=== PATIENT | female | born 1955 | race Hispanic/Latino ===

== ENCOUNTER 2017-09-06 09:08 | Inpatient (IN) | payer MEDICARE ==
[2017-09-06 09:14] VITALS: BMI 27.8
[2017-09-06] MEDS ORDERED: Iohexol 240 (50 ml) PO ONE (09:39)
[2017-09-06] MEDS ORDERED: Sodium Chloride 0.9% 1,000 ML IV STA (09:39)
--- NOTE | 2017-09-06 09:48 | ED PDOC ---
HPI: Abdomen Time Seen by Provider: 09/06/17 09:19 Chief Complaint (Nursing): GI Problem Chief Complaint (Provider): constipation History Per: Patient History/Exam Limitations: no limitations Onset/Duration Of Symptoms: Days (1 month) Outside of [place] travel?: No Current Symptoms Are (Timing): Still Present Additional Complaint(s): Pt. with constipation for 1 month. Gets relief with some meds. Mag citrate used Wed and it helped. Pt. has tried colace and enemas as well. Saw Dr. Negrete for the constipation. Told to use colace with only trace stool. Came today as she has some back pain for 3 days. No weakness, dizziness, abd pain, chest pain, dyspnea, nausea, vomit. Past Medical History Reviewed: Nursing Documentation, Vital Signs Vital Signs: Last Vital Signs Temp 98.1 F 09/06/17 09:14 Pulse 106 H 09/06/17 09:14 Resp 17 09/06/17 09:14 BP 157/91 H 09/06/17 09:14 Pulse Ox 98 09/06/17 09:48 - Medical History PMH: Asthma Denies: Chronic Kidney Disease Other PMH: lymphoma hx and remession - Surgical History Surgical History: No Surg Hx - Family History Family History: States: Unknown Family Hx - Social History Current smoker - smoking cessation education provided: No Alcohol: None Drugs: Denies - Home Medications Home Medications: Ambulatory Orders Medication Instructions Recorded Albuterol HFA [Ventolin HFA 90 1 inhaler Q6 PRN 07/18/14 mcg/actuation (8 g)] Oseltamivir Phosphate [Tamiflu] 75 mg PO BID #10 cap 08/10/15 - Allergies Allergies/Adverse Reactions: Allergies Allergy/AdvReac Type Severity Reaction Status Date / Time FISH Allergy THROAT Verified 09/06/17 09:26 SWELLS vitamin b complex Allergy RASH Uncoded 09/06/17 09:26 Review of Systems ROS Statement: Except As Marked, All Systems Reviewed And Found Negative Gastrointestinal: Positive for: Constipation Musculoskeletal: Positive for: Back Pain Physical Exam - Reviewed Nursing Documentation Reviewed: Yes Vital Signs Reviewed: Yes - Physical Exam Appears: Positive for: Uncomfortable Head Exam: Positive for: ATRAUMATIC, NORMAL INSPECTION, NORMOCEPHALIC Skin: Positive for: Normal Color, Warm, DRY Eye Exam: Positive for: EOMI, Normal appearance, PERRL ENT: Positive for: Normal ENT Inspection Neck: Positive for: Normal, Painless ROM Cardiovascular/Chest: Positive for: Regular Rate, Rhythm Respiratory: Positive for: CNT, Normal Breath Sounds Gastrointestinal/Abdominal: Positive for: Normal Exam, Soft. Negative for: Tenderness Back: Positive for: Normal Inspection. Negative for: L CVA Tenderness, R CVA Tenderness Extremity: Positive for: Normal ROM. Negative for: Tenderness, Pedal Edema Neurologic/Psych: Positive for: Alert, senior net application developer II-XII, Oriented. Negative for: Motor/Sensory Deficits - Laboratory Results Result Diagrams: 09/06/17 10:17 09/06/17 10:17 Interpretation Of Abn Labs: no acute - ECG O2 Sat by Pulse Oximetry: 98 - Progress ED Course And Treament: 1344: Stable. Spoke with Dr. Negrete who wants admit to hospitalist. Spoke with Dr. Moyer. Will admit. Dr. Christianson, oncology paged. 1356: Spoke with Dr. Christianson. Pt. well known to her. Wants pt. admitted and she will consult. Recommends 1mg/kg sc of lovenox for the portal vein thrombosis. Pt. with no new bleeding, vomiting blood. No recent fall or head injury. IMPRESSION: 1. Findings are most compatible with large 5.5 x 4.4 cm mass in the body of the pancreas with invasion and portal vein thrombosis. Regional lymphadenopathy, the largest precaval lymph node measures 1.6 cm. 2. Solitary 2.7 cm rim enhancing lesion in the posterior superior right hepatic lobe concerning for metastatic deposit given large pancreatic mass. Anteriorly the mass abuts the posterior wall of the stomach and posteriorly extends into the retroperitoneum and abuts the left lateral wall of the superior mesenteric artery an celiac axis. The differential considerations include pancreatic carcinoma and lymphoma with the stated history of lymphoma. Histopathologic correlation is advised. 3. Moderate splenomegaly with portosystemic varices as described above. 4. 10 x 15 mm subcapsular lesion in the lower pole of the spleen is nonspecific , decreased in size since the prior examination most compatible with known posttreatment change/infarction. 5. Stable 8 mm nodule in the left lung base. - Critical Care Total Time (In Min): 30 Documented Critical Care: Time excludes all time spent performint seperately billable procedures Disposition - Clinical Impression Clinical Impression: Pancreatic mass, Portal vein thrombosis - Patient ED Disposition Is Patient to be Admitted: Yes Counseled Patient/Family Regarding: Studies Performed, Diagnosis - Disposition Disposition Time: 13:45 Condition: FAIR - Pt Status Changed To: Hospital Disposition Of: Inpatient - Admit Certification Admit to Inpatient:: After my assessment, the patient will require hospitalization for at least two midnights. This is because of the severity of symptoms shown, intensity of services needed, and/or the medical risk in this patient being treated as an outpatient. - POA Present On Arrival: None
[2017-09-06] MEDS ORDERED: Iohexol 240 (50 ml) ONE (10:10)
[2017-09-06 10:29] LABS: BASO % 0.7 % (0.0-2.0); EOS # 0.1 K/uL (0.0-0.7); EOS % 2.3 % (0.0-4.0); HEMOGLOBIN 15.6 g/dL (12.0-16.0); LYMPH # 1.3 K/uL (1.0-4.3); LYMPH % 33.2 % (20.0-40.0); MEAN CORPUSCULAR HEMOGLOBIN 29.2 pg (27.0-31.0); MEAN CORPUSCULAR HGB CONC 34.3 g/dL (33.0-37.0); MEAN PLATELET VOLUME 8.9 fl (7.2-11.7); MONO # 0.3 K/uL (0.0-0.8); MONO % 8.1 % (0.0-10.0); NEUT # 2.3 K/uL (1.8-7.0); NEUT % 55.7 % (50.0-75.0); NRBC % 0.1 % (0.0-0.0); RBC 5.36 Mil/uL (3.80-5.20); RED CELL DISTRIBUTION WIDTH 13.4 % (11.5-14.5); WHITE BLOOD COUNT 4.1 K/uL (4.8-10.8)
[2017-09-06 10:38] LABS: ALB/GLOB RATIO 1.5 (1.0-2.1); ALBUMIN 4.6 g/dL (3.5-5.0); ALT/SGPT 42 U/L (9-52); AST/SGOT 21 U/L (14-36); BLOOD UREA NITROGEN 11 mg/dl (7-17); GFR AFRICAN-AMERICAN > 60; GFR NON-AFRICAN AMERICAN > 60
[2017-09-06] MEDS ORDERED: Sodium Chloride 0.9% 100 ML ONE (11:38)
[2017-09-06] MEDS ORDERED: Iohexol 300 100 ML IJ ONE (11:38)
--- NOTE | 2017-09-06 12:57 | CT ---
PROCEDURE: CT Abdomen and Pelvis with contrast HISTORY: Abdominal pain COMPARISON: 09/29/2012 TECHNIQUE: CT scan of the abdomen and pelvis was performed after administration of intravenous contrast. Oral contrast was administered. Coronal and sagittal reformatted images were obtained. Contrast dose: 98 cc Omnipaque 300 Radiation dose: Total exam DLP = 2128.38 mGy-cm. This CT exam was performed using one or more of the following dose reduction techniques: Automated exposure control, adjustment of the mA and/or kV according to patient size, and/or use of iterative reconstruction technique. FINDINGS: LOWER THORAX: The right lung base is clear. There is a 8 mm non coarse defined nodule in the left lung base. (Series 2, image 13). LIVER: The liver is normal in size and there is diffuse fatty infiltration with probable fatty sparing in the peripheral right hepatic lobe. No ductal dilatation. There is a 2.7 x 1.7 cm subcapsular rim enhancing hyperdense lesion in the posterior superior right hepatic lobe. GALLBLADDER AND BILE DUCTS: No calcified gallstones. PANCREAS: there is a 5.5 x 4.4 cm hyperdense mass in the body of the pancreas. The tail of the pancreas is not visualized and likely atrophic. The head of the pancreas appears normal in size with normal enhancement.There is probable invasion and thrombosis of the splenic vein. There are multiple splenorenal, perisplenic and gastric varices. Anteriorly the mass abuts the posterior wall of the stomach. Posteriorly the mass extends into the retroperitoneum and abuts the left lateral wall of the superior mesenteric artery and celiac axis. SPLEEN: There is moderate enlargement of the spleen without there is a 10 x 15 mm subcapsular hypodense lesion in the lower pole of the spleen with eccentric calcification. ADRENALS: No discrete nodule. KIDNEYS AND URETERS: Normal in size with homogeneous enhancement. No hydronephrosis. No solid mass. VASCULATURE: There are advanced atherosclerotic aortoiliac calcifications. No aortic aneurysm. BOWEL: The small bowel loops are normal in caliber. The colon is unremarkable. . APPENDIX: Normal appendix. PERITONEUM: Unremarkable. No free fluid. No free air. LYMPH NODES: There is a 1.6 cm precaval lymph node. Additionally, there are small peripancreatic lymph nodes. BLADDER: Partially decompressed. REPRODUCTIVE: Mildly enlarged fibroid uterus. BONES: No acute fracture. Diffuse bone demineralization and multilevel degenerative changes. OTHER FINDINGS: None. IMPRESSION: 1. Findings are most compatible with large 5.5 x 4.4 cm mass in the body of the pancreas with invasion and portal vein thrombosis. Regional lymphadenopathy, the largest precaval lymph node measures 1.6 cm. 2. Solitary 2.7 cm rim enhancing lesion in the posterior superior right hepatic lobe concerning for metastatic deposit given large pancreatic mass. Anteriorly the mass abuts the posterior wall of the stomach and posteriorly extends into the retroperitoneum and abuts the left lateral wall of the superior mesenteric artery an celiac axis. The differential considerations include pancreatic carcinoma and lymphoma with the stated history of lymphoma. Histopathologic correlation is advised. 3. Moderate splenomegaly with portosystemic varices as described above. 4. 10 x 15 mm subcapsular lesion in the lower pole of the spleen is nonspecific, decreased in size since the prior examination most compatible with known posttreatment change/infarction. 5. Stable 8 mm nodule in the left lung base.
[2017-09-06] MEDS ORDERED: Enoxaparin 80 mg Syringe SC STA (13:50)
[2017-09-06] MEDS ORDERED: Albuterol HFA 90 mcg/actuation (8 g) INH PRN (14:32)
[2017-09-06] MEDS ORDERED: Magnesium Hydroxide Susp 30 ml UD PO PRN (14:41)
[2017-09-06 15:00] LABS: LIPASE 93 U/L (23-300)
[2017-09-06 15:15] LABS: PROTHROMBIN TIME 13.2 Seconds (9.8-13.1)
[2017-09-06 15:16] LABS: INR 1.2 (0.9-1.2)
[2017-09-06 15:17] LABS: PARTIAL THROMBOPLASTIN TIME 32.6 Seconds (25.6-37.1)
--- NOTE | 2017-09-06 15:22 | CP.PCM.HP ---
History of Present Illness - History of Present Illness History of Present Illness: CC: Abdominal pain This is a 62 year old female with a past medical history significant for asthma , mantle cell lymphoma, w/ hx secondary splenic mass, presenting to the ED complaining of severe abdominal pain. The patient states that she has been constipated over the past week. She has attempted colace and enemas as well over the past two days but did not help. As a result she came to the ED. Here in the ED, the patient was found to be hemodynamically stable. Labwork is benign. CT scan was done due to the severe abdominal pain and revealed a large pancreatic mass with a right sided hepatic mass concerning for metastatic disease. In addition the patient was found to have a portal vein thrombosis. Dr. Sanford was called for heme/onc by the ED physician and recommended inpatient admission for anticoagulation and for further oncologic workup of this concerning mass. Patient's abdominal pain is still present but improved somewhat. Patient denies chest pain, shortness of breath, fevers, chills, vomiting, diarrhea, headache. All of the patient's questions were answered at the bedside. Present on Admission - Present on Admission Any Indicators Present on Admission: No History of DVT/PE: No History of Uncontrolled Diabetes: No Review of Systems - Review of Systems Review of Systems: A 12 point review of systems was conducted and found to be negative other than what was mentioned in the HPI. Past Patient History - Infectious Disease Hx of Infectious Diseases: None - Past Medical History & Family History Past Medical History?: Yes - Past Social History Alcohol: None Drugs: Denies - CARDIAC Hx Cardiac Disorders: No - PULMONARY Hx Respiratory Disorders: Yes - NEUROLOGICAL Hx Neurological Disorder: No - HEENT Hx HEENT Problems: No - RENAL Hx Chronic Kidney Disease: No - ENDOCRINE/METABOLIC Hx Endocrine Disorders: No - HEMATOLOGICAL/ONCOLOGICAL Hx Blood Disorders: Yes - INTEGUMENTARY Hx Dermatological Problems: No - MUSCULOSKELETAL/RHEUMATOLOGICAL Hx Musculoskeletal Disorders: No - GASTROINTESTINAL Hx Gastrointestinal Disorders: No - GENITOURINARY/GYNECOLOGICAL Hx Genitourinary Disorders: No - PSYCHIATRIC Hx Psychophysiologic Disorder: No Hx Emotional Abuse: No Hx Substance Use: No - SURGICAL HISTORY Hx Surgeries: Yes Hx Vascular Access Device: Yes (JANETH CATH INSERTED 05/2011) Other/Comment: OVARIAN CYSTECTOMY 1979 - ANESTHESIA Hx Anesthesia: Yes Hx Anesthesia Reactions: Yes (EXAC ASTHMA ) Hx Malignant Hyperthermia: No Meds Allergies/Adverse Reactions: Allergies Allergy/AdvReac Type Severity Reaction Status Date / Time FISH Allergy THROAT Verified 09/06/17 09:26 SWELLS vitamin b complex Allergy RASH Uncoded 09/06/17 09:26 Physical Exam - Additional Findings Additional findings: Physical exam: Constitutional- cooperative, awake, alert Head- NCAT, PERRL Eye- PERRL, EOMI ENT- normal exam, MMM. Neck- normal inspection, supple, no JVD Respiratory- CTAB, no wheezes rales rhonchi Cardiovascular- RRR, +S1, +S2 no MRG GI/Abdominal- normal bowel sounds, soft, no mass, no hsm Skin- warm, dry Extremities Exam- normal capillary refill, normal inspection Neurological Exam- alert, awake, oriented Psych- normal mood, normal affect Results - Vital Signs Recent Vital Signs: Last Vital Signs Temp 98.1 F 09/06/17 09:14 Pulse 97 H 09/06/17 14:58 Resp 17 09/06/17 14:58 BP 130/84 09/06/17 14:58 Pulse Ox 98 09/06/17 14:15 - Labs Result Diagrams: 09/06/17 10:17 09/06/17 10:17 Labs: Laboratory Results - last 24 hr 09/06/17 09/06/17 09/06/17 10:17 10:17 14:45 WBC 4.1 L D RBC 5.36 H Hgb 15.6 Hct 45.6 MCV 85.0 D MCH 29.2 MCHC 34.3 RDW 13.4 Plt Count 129 L D MPV 8.9 Neut % (Auto) 55.7 Lymph % (Auto) 33.2 Cassia % (Auto) 8.1 Eos % (Auto) 2.3 Baso % (Auto) 0.7 Neut # (Auto) 2.3 Lymph # (Auto) 1.3 Cassia # (Auto) 0.3 Eos # (Auto) 0.1 Baso # (Auto) 0.0 PT INR APTT Sodium 146 Potassium 3.9 Chloride 105 Carbon Dioxide 24 Anion Gap 21 H BUN 11 Creatinine 0.6 L Est GFR ( Amer) > 60 Est GFR (Non-Af Amer) > 60 Random Glucose 129 H Calcium 10.0 Total Bilirubin 0.8 AST 21 ALT 42 Alkaline Phosphatase 86 Troponin I < 0.0120 Total Protein 7.6 Albumin 4.6 Globulin 3.0 Albumin/Globulin Ratio 1.5 Lipase 93 09/06/17 14:45 WBC RBC Hgb Hct MCV MCH MCHC RDW Plt Count MPV Neut % (Auto) Lymph % (Auto) Cassia % (Auto) Eos % (Auto) Baso % (Auto) Neut # (Auto) Lymph # (Auto) Cassia # (Auto) Eos # (Auto) Baso # (Auto) PT 13.2 H INR 1.2 APTT 32.6 Sodium Potassium Chloride Carbon Dioxide Anion Gap BUN Creatinine Est GFR ( Amer) Est GFR (Non-Af Amer) Random Glucose Calcium Total Bilirubin AST ALT Alkaline Phosphatase Troponin I Total Protein Albumin Globulin Albumin/Globulin Ratio Lipase Assessment & Plan - Assessment and Plan (Free Text) Plan: ASSESSMENT/PLAN This is a 62 yo female with a past medical history significant for asthma, mantle cell lymphoma, w/ hx secondary splenic mass, admitted for portal vein thrombosis and large pancreatic mass with likely metastatic disease. 1) Large pancreatic mass, 5.5 x 4.4, in the body of the pancreas with invasion and portal vein thrombosis, with 2.7 cm rim enhancing lesion in the posterior superior right hepatic lobe concerning for metastatic deposit given large pancreatic mass. - Admit to med/surg - Consultation with Dr. Uriah Sanford, heme/onc, for oncologic workup. Patient will likely require mass biopsy for further evaluation 2) Portal vein thrombosis - Secondary to pancreatic mass - Start therapeutic Lovenox 1 mg/kg - Consultation with Dr. Uriah sanford as above 3) Asthma - Chronic, stable - Dr. Negrete on consultation for pulmonary - Ventolin inhaler PRN 4) Constipation - Lactulose - Milk of magnesia - Colace 100 mg po BID 5) DVT prophylaxis - Lovenox
[2017-09-06] MEDS ORDERED: Theophylline 200mg ER 24 hrs Cap PO SCH (17:00)
[2017-09-06] MEDS ORDERED: Theophylline 100mg ER 24 hrs Cap PO SCH (17:00)
[2017-09-06] MEDS ORDERED: Pneumococcal 23-Valent Vaccine IM ONE (18:50)
[2017-09-06] MEDS: Enoxaparin 80 mg Syringe SC SCH (20:58)
[2017-09-07] MEDS: Enoxaparin 80 mg Syringe SC SCH (08:02)
--- NOTE | 2017-09-07 10:43 | CP.PCM.CON ---
History of Present Illness - History of Present Illness History of Present Illness: This a 62 yrs old female well known to me for about 7 yrs. She had a non hodgkins lymphoma with a large spleen extending down to the Right lower quadrant.. She was treated with rituxan+CHOP and had a excellent response. She was on maintenance Rituxan for 2 yrs and was in complete remission until now. She had regular blood tests with [facility] and there were always normal. Her last PET scan about 1 yr ago did not show any adenopathy, and the spleen which was slightly enlarged but was not positive on the PET scan. She has been quite heavy and made up her mind to lose weight She was on a low carb and went to the Gym regularly, and lost about 20 lbs over 6 months. No c/o abdominal pain. Now she presents with severe abdominal pain and constipation for the last week. She came to the ER and had a CT scan to r.o obstruction, but was found to have a 5,5cm mass in the body of the pancreas, with a 2.5 lesin in the liver. and a ? lesion in the lower pole of the spleen which is enlarged. No jaundice, there is pressure on the stomach, with infiltration into the retroperitoneum and the portal vein, cauing portal vein thrombosis, Was smoker in the past but quit many years ago Drinks wine occasionally Past h/o asthma and was under the care of Dr Negrete for the same. Past Patient History - Infectious Disease Hx of Infectious Diseases: None - Past Medical History & Family History Past Medical History?: Yes - Past Social History Smoking Status: Smoker Currrent Status Unknown - CARDIAC Hx Cardiac Disorders: No - PULMONARY Hx Respiratory Disorders: Yes Hx Asthma: Yes - NEUROLOGICAL Hx Neurological Disorder: No - HEENT Hx HEENT Problems: No - RENAL Hx Chronic Kidney Disease: No - ENDOCRINE/METABOLIC Hx Endocrine Disorders: No Other/Comment: lymphoma - HEMATOLOGICAL/ONCOLOGICAL Hx Blood Disorders: Yes - INTEGUMENTARY Hx Dermatological Problems: No - MUSCULOSKELETAL/RHEUMATOLOGICAL Hx Musculoskeletal Disorders: No Hx Falls: No - GASTROINTESTINAL Hx Gastrointestinal Disorders: No - GENITOURINARY/GYNECOLOGICAL Hx Genitourinary Disorders: No - PSYCHIATRIC Hx Psychophysiologic Disorder: No Hx Emotional Abuse: No Hx Substance Use: No - SURGICAL HISTORY Hx Surgeries: Yes Hx Vascular Access Device: Yes (JANETH CATH INSERTED 05/2011) Other/Comment: OVARIAN CYSTECTOMY 1979 - ANESTHESIA Hx Anesthesia: Yes Hx Anesthesia Reactions: Yes (EXAC ASTHMA ) Hx Malignant Hyperthermia: No Meds Allergies/Adverse Reactions: Allergies Allergy/AdvReac Type Severity Reaction Status Date / Time FISH Allergy THROAT Verified 09/06/17 09:26 SWELLS vitamin b complex Allergy RASH Uncoded 09/06/17 09:26 - Medications Medications: Current Medications Acetaminophen (Tylenol 325mg Tab) 650 mg PO Q4 PRN PRN Reason: Other Last Admin: 09/06/17 21:15 Dose: 650 mg Albuterol (Ventolin Hfa 90 Mcg/Actuation (8 G)) 1 puff INH Q6 PRN PRN Reason: Shortness of Breath Docusate Sodium (Colace) 100 mg PO BID [facility] Last Admin: 09/07/17 08:00 Dose: 100 mg Enoxaparin Sodium (Lovenox) 70 mg SC Q12H TESFAYE PRN Reason: Protocol Last Admin: 09/07/17 08:02 Dose: 70 mg Famotidine (Pepcid) 20 mg PO DAILY [facility] Last Admin: 09/07/17 08:00 Dose: 20 mg Lactulose (Enulose) 20 gm PO BID PRN PRN Reason: Constipation Last Admin: 09/07/17 08:03 Dose: 20 gm Magnesium Hydroxide (Milk Of Magnesia) 30 ml PO DAILY PRN PRN Reason: Constipation Ondansetron HCl (Zofran Inj) 4 mg IVP Q6 PRN PRN Reason: Nausea/Vomiting Theophylline (Baldomero-24) 100 mg PO DAILY [facility] Last Admin: 09/06/17 18:06 Dose: Not Given Zolpidem Tartrate (Ambien) 5 mg PO HS PRN PRN Reason: Insomnia Last Admin: 09/06/17 21:56 Dose: 5 mg Physical Exam - Additional Findings Additional findings: Physical exam; Alert, well oriented in no acute disease Neck; Supple no adenopathy Chest; Clear, no rales pr rhonchi Heart; RSR, no murmur Abd; Soft, no mass, spleen 8cms below left costal margin Results - Vital Signs Recent Vital Signs: Last Vital Signs Temp 98.3 F 09/07/17 08:01 Pulse 73 09/07/17 08:01 Resp 20 09/07/17 08:01 BP 123/78 09/07/17 08:01 Pulse Ox 96 09/07/17 08:01 - Labs Result Diagrams: 09/06/17 10:17 09/06/17 10:17 Labs: Laboratory Results - last 24 hr 09/06/17 09/06/17 09/06/17 10:17 10:17 14:45 WBC 4.1 L D RBC 5.36 H Hgb 15.6 Hct 45.6 MCV 85.0 D MCH 29.2 MCHC 34.3 RDW 13.4 Plt Count 129 L D MPV 8.9 Neut % (Auto) 55.7 Lymph % (Auto) 33.2 Wallace % (Auto) 8.1 Eos % (Auto) 2.3 Baso % (Auto) 0.7 Neut # (Auto) 2.3 Lymph # (Auto) 1.3 Wallace # (Auto) 0.3 Eos # (Auto) 0.1 Baso # (Auto) 0.0 PT INR APTT Sodium 146 Potassium 3.9 Chloride 105 Carbon Dioxide 24 Anion Gap 21 H BUN 11 Creatinine 0.6 L Est GFR ( Amer) > 60 Est GFR (Non-Af Amer) > 60 Random Glucose 129 H Calcium 10.0 Total Bilirubin 0.8 AST 21 ALT 42 Alkaline Phosphatase 86 Troponin I < 0.0120 Total Protein 7.6 Albumin 4.6 Globulin 3.0 Albumin/Globulin Ratio 1.5 Lipase 93 09/06/17 14:45 WBC RBC Hgb Hct MCV MCH MCHC RDW Plt Count MPV Neut % (Auto) Lymph % (Auto) Wallace % (Auto) Eos % (Auto) Baso % (Auto) Neut # (Auto) Lymph # (Auto) Wallace # (Auto) Eos # (Auto) Baso # (Auto) PT 13.2 H INR 1.2 APTT 32.6 Sodium Potassium Chloride Carbon Dioxide Anion Gap BUN Creatinine Est GFR ( Amer) Est GFR (Non-Af Amer) Random Glucose Calcium Total Bilirubin AST ALT Alkaline Phosphatase Troponin I Total Protein Albumin Globulin Albumin/Globulin Ratio Lipase Assessment & Plan - Assessment and Plan (Free Text) Assessment: Impression; Pancreatic mass, possible liver metastasis ? pancreatic cancer , ? recurrent lymphoma Portal vein thrombosis Plan: Plan' I agree that pt should ne on anticoagulants. She is on lovenox ,which will be held because a biopsy is to be done tomorrow by IR. If not successful, will need a EUS biopsy7 - Date & Time Date: 09/07/17 Time: 10:54
--- NOTE | 2017-09-07 12:05 | CP.PCM.PN ---
Subjective - Date & Time of Evaluation Date of Evaluation: 09/07/17 Time of Evaluation: 11:00 - Subjective Subjective: Patient seen and examined bedside. feeling much better today . Able to have BM and pain is controlled . No acute issues overnight. Hemodynamically stable Objective - Vital Signs/Intake and Output Vital Signs (last 24 hours): Temp Pulse Resp BP Pulse Ox 98.3 F 73 20 123/78 96 09/07/17 08:01 09/07/17 08:01 09/07/17 08:01 09/07/17 08:01 09/07/17 08:01 - Medications Medications: Current Medications Acetaminophen (Tylenol 325mg Tab) 650 mg PO Q4 PRN PRN Reason: Other Last Admin: 09/06/17 21:15 Dose: 650 mg Albuterol (Ventolin Hfa 90 Mcg/Actuation (8 G)) 1 puff INH Q6 PRN PRN Reason: Shortness of Breath Docusate Sodium (Colace) 100 mg PO BID [facility] Last Admin: 09/07/17 08:00 Dose: 100 mg Enoxaparin Sodium (Lovenox) 70 mg SC Q12H [facility] PRN Reason: Protocol Last Admin: 09/07/17 08:02 Dose: 70 mg Famotidine (Pepcid) 20 mg PO DAILY [facility] Last Admin: 09/07/17 08:00 Dose: 20 mg Lactulose (Enulose) 20 gm PO BID PRN PRN Reason: Constipation Last Admin: 09/07/17 08:03 Dose: 20 gm Magnesium Hydroxide (Milk Of Magnesia) 30 ml PO DAILY PRN PRN Reason: Constipation Ondansetron HCl (Zofran Inj) 4 mg IVP Q6 PRN PRN Reason: Nausea/Vomiting Theophylline (Baldomero-24) 100 mg PO DAILY [facility] Last Admin: 09/06/17 18:06 Dose: Not Given Zolpidem Tartrate (Ambien) 5 mg PO HS PRN PRN Reason: Insomnia Last Admin: 09/06/17 21:56 Dose: 5 mg - Labs Labs: 09/06/17 10:17 09/06/17 10:17 PT 13.2 Seconds (9.8-13.1) H 09/06/17 14:45 INR 1.2 (0.9-1.2) 09/06/17 14:45 APTT 32.6 Seconds (25.6-37.1) 09/06/17 14:45 - Constitutional Appears: Non-toxic, No Acute Distress - Head Exam Head Exam: ATRAUMATIC, NORMAL INSPECTION, NORMOCEPHALIC - Eye Exam Eye Exam: EOMI, Normal appearance, PERRL Pupil Exam: NORMAL ACCOMODATION - ENT Exam ENT Exam: Mucous Membranes Moist, Normal Exam - Neck Exam Neck Exam: Full ROM, Normal Inspection - Respiratory Exam Respiratory Exam: Clear to Ausculation Bilateral, NORMAL BREATHING PATTERN. absent: Rales, Rhonchi, Wheezes - Cardiovascular Exam Cardiovascular Exam: REGULAR RHYTHM, RRR, +S1, +S2. absent: JVD - GI/Abdominal Exam GI & Abdominal Exam: Soft, Normal Bowel Sounds. absent: Distended, Guarding, Tenderness, Rebound - Rectal Exam Rectal Exam: Deferred - Extremities Exam Extremities Exam: Full ROM, Normal Capillary Refill, Normal Inspection. absent : Calf Tenderness, Pedal Edema - Back Exam Back Exam: NORMAL INSPECTION - Neurological Exam Neurological Exam: Alert, Awake, CN II-XII Intact, Normal Gait, Oriented x3 - Psychiatric Exam Psychiatric exam: Normal Affect, Normal Mood - Skin Skin Exam: Dry, Intact, Normal Color, Warm Assessment and Plan - Assessment and Plan (Free Text) Assessment: 62 yo female with a past medical history significant for asthma, mantle cell lymphoma treated with chemotherapy and currently on remission since 2014, presented tpo Er with severe abdominal pain , progressive over the last 1 month and constipation .CT abdomen and pelvis showed portal vein thrombosis and 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 patient admitted to med/surg for pain control, anticoagulation and further work up for the mass. 1.Suspected metastatic disease of unclear etiology ( possible lymphoma , pancreatic ca ) CT abdomen and pelvis showed : Large pancreatic mass, 5.5 x 4.4, in the body of the pancreas with invasion and portal vein thrombosis, with 2.7 cm rim enhancing lesion in the posterior superior right hepatic lobe concerning for metastatic deposit given large pancreatic mass. plan for IR biopsy of one of the lesions for tissue diagnosis. Hold Lovenox today and tomorrow NPO past midnight 2.Portal vein thrombosis Possible Secondary to pancreatic mass Started therapeutic Lovenox 1 mg/kg Hem/onc consulted hold Lovenox today and AM for tissue biopsy 3.Asthma Chronic, stable Dr. Negrete on consultation for pulmonary Ventolin inhaler PRN 4. Constipation Given Lactulose and MOM Continue colase resolved 5. History of lymphoma 6.DVT prophylaxis on Lovenox hold Lovenox today and tomorrow for IR biopsy
[2017-09-07] MEDS: Theophylline 80 mg/15 ml Liq UD PO SCH (16:59)
[2017-09-08 06:26] LABS: HEMOGLOBIN 13.2 g/dL (12.0-16.0); MEAN CELL VOLUME 85.3 fl (81.0-99.0); MEAN CORPUSCULAR HEMOGLOBIN 28.9 pg (27.0-31.0); MEAN CORPUSCULAR HGB CONC 33.9 g/dL (33.0-37.0); RBC 4.57 Mil/uL (3.80-5.20); RED CELL DISTRIBUTION WIDTH 13.3 % (11.5-14.5); WHITE BLOOD COUNT 2.7 K/uL (4.8-10.8)
[2017-09-08 06:30] LABS: INR 1.2 (0.9-1.2)
[2017-09-08 07:22] LABS: BLOOD UREA NITROGEN 8 mg/dl (7-17); CALCIUM 9.3 mg/dL (8.4-10.2); GFR AFRICAN-AMERICAN > 60; GFR NON-AFRICAN AMERICAN > 60
[2017-09-08 08:02] VITALS: BP 133/87; PULSE 76; RESP 20; TEMP 98; O2SAT 96
[2017-09-08] MEDS: Theophylline 80 mg/15 ml Liq UD PO SCH (08:21)
[2017-09-08] MEDS ORDERED: Pantoprazole 40 mg EC Tab PO SCH (09:00)
--- NOTE | 2017-09-08 09:08 | CARD ---
APPROVED REPORT EKG Measurement Heart [id number] SD [id number] <Conclusion> Normal sinus rhythm Possible Left atrial enlargement Possible inferior infarct, age undetermined Abnormal ECG
--- NOTE | 2017-09-08 09:41 | CP.PCM.CON ---
History of Present Illness - History of Present Illness History of Present Illness: This 62-year-old female is well-known to me from the outpatient setting as well as prior hospitalizations. She was seen just a few days prior to admission when she presented to my office complaining of constipation. She had noted a recent change in her bowel habit which was not responsive to [id number] medications at that time. She was complaining of a pressure type sensation in her back which was alleviated by bowel movement. There were some symptoms which appeared to be related to hyperacidity and gas discomfort in the epigastric area and was begun on famotidine 20 mg tablets once daily and encouraged to use increased amount of Colace. She was told that she would require further studies if her bowel movements do not improve over the course of the next few days. She returned home and continued to have abdominal discomfort and failed to have a bowel movement despite the above and presented to the emergency department. A CT of the abdomen/pelvis was requested which revealed a large mass in the body of the pancreas. She had been treated for mantle cell lymphoma with great improvement having received chemotherapy for approximately 3 years time finishing 4 years ago. She has been monitored on an outpatient basis by oncology and has done well since that time. Her past medical history includes bronchial asthma which has been stable for many years using only a rescue inhaler as needed. There is a past history of ovarian cyst, acne, pneumonia and of course her lymphoma. Past surgical history does include implant of a life port for chemotherapy and ovarian cystectomy. Family history includes bronchial asthma, chronic obstructive lung disease, pancreatic carcinoma and ovarian carcinoma. She is a former cigarette smoker who discontinued her habit many years ago. Alcohol intake is minimal and social only. There is no history of illicit drug use. She has no known drug allergies. She does have reaction to the animal dander/dog. There is no work exposure to asbestos or toxic chemicals. Review of Systems - Review of Systems All systems: reviewed and no additional remarkable complaints except - Constitutional Constitutional: Weight Loss - EENT Ears: Tinnitus - Gastrointestinal Gastrointestinal: Abdominal Pain, Change in Bowel Habits - Musculoskeletal Musculoskeletal: Back Pain Past Patient History - Infectious Disease Hx of Infectious Diseases: None - Past Medical History & Family History Past Medical History?: Yes - Past Social History Smoking Status: Former Smoker Chewing Tobacco Use: No Cigar Use: No Alcohol: Social Drugs: Denies Home Situation {Lives}: With Family Domestic Violence: Negative - CARDIAC Hx Cardiac Disorders: No - PULMONARY Hx Asthma: Yes Hx Pneumonia: Yes (Remote) - NEUROLOGICAL Hx Neurological Disorder: No - HEENT Hx HEENT Problems: Yes Other/Comment: Tinnitus - RENAL Hx Chronic Kidney Disease: No - ENDOCRINE/METABOLIC Hx Endocrine Disorders: No Other/Comment: lymphoma - HEMATOLOGICAL/ONCOLOGICAL Hx Cancer: Yes (Lymphoma, non-Hodgkin's) - INTEGUMENTARY Hx Dermatological Problems: No - MUSCULOSKELETAL/RHEUMATOLOGICAL Hx Musculoskeletal Disorders: No Hx Falls: No - GASTROINTESTINAL Hx Constipation: Yes - GENITOURINARY/GYNECOLOGICAL Hx Genitourinary Disorders: No - PSYCHIATRIC Hx Psychophysiologic Disorder: No Hx Emotional Abuse: No Hx Substance Use: No - SURGICAL HISTORY Hx Surgeries: Yes Hx Vascular Access Device: Yes (JANETH CATH INSERTED 05/2011) Other/Comment: OVARIAN CYSTECTOMY 1979 - ANESTHESIA Hx Anesthesia: Yes Hx Anesthesia Reactions: Yes (EXAC ASTHMA ) Hx Malignant Hyperthermia: No Meds Allergies/Adverse Reactions: Allergies Allergy/AdvReac Type Severity Reaction Status Date / Time FISH Allergy THROAT Verified 09/06/17 09:26 SWELLS vitamin b complex Allergy RASH Uncoded 09/06/17 09:26 - Medications Medications: Current Medications Acetaminophen (Tylenol 325mg Tab) 650 mg PO Q4 PRN PRN Reason: Other Last Admin: 09/06/17 21:15 Dose: 650 mg Albuterol (Ventolin Hfa 90 Mcg/Actuation (8 G)) 1 puff INH Q6 PRN PRN Reason: Shortness of Breath Docusate Sodium (Colace) 100 mg PO BID [facility] Last Admin: 09/08/17 08:20 Dose: Not Given Enoxaparin Sodium (Lovenox) 70 mg SC Q12H [facility] PRN Reason: Protocol Last Admin: 09/07/17 08:02 Dose: 70 mg Famotidine (Pepcid) 20 mg PO DAILY [facility] Last Admin: 09/08/17 08:14 Dose: 20 mg Lactulose (Enulose) 20 gm PO BID PRN PRN Reason: Constipation Last Admin: 09/07/17 08:03 Dose: 20 gm Magnesium Hydroxide (Milk Of Magnesia) 30 ml PO DAILY PRN PRN Reason: Constipation Ondansetron HCl (Zofran Inj) 4 mg IVP Q6 PRN PRN Reason: Nausea/Vomiting Pantoprazole Sodium (Protonix Ec Tab) 40 mg PO DAILY [facility] Last Admin: 09/08/17 08:21 Dose: Not Given Temazepam (Restoril) 15 mg PO HS PRN PRN Reason: Insomnia Last Admin: 09/07/17 22:24 Dose: 15 mg Theophylline (Elixophyllin Liq) 50 mg PO BID [facility] Last Admin: 09/08/17 08:21 Dose: Not Given Physical Exam - Additional Findings Additional findings: Well-nourished and well-developed female in no acute distress. Her memory is intact and her speech is fluent. Her gait is normal. There is no focal motor weakness. Pupils are equal and reactive. EOMI. No dependent edema of the lower extremities. No cyanosis. No calf tenderness or palpable venous cords. No skin rash or ecchymosis. Conjunctivae are pink and there is no scleral icterus. Pharynx is pink and mucous membranes are moist. No exudate is seen. The neck is supple and trachea is midline. No neck vein distention or carotid bruit. No palpable thyromegaly. No palpable lymphadenopathy. No dullness on chest percussion. Equal expansion. Breath sounds are well heard in both lungs. No rales or wheezes. No bronchial breathing or egophony. No rhonchi or rubs. Heart sounds are well heard. Rhythm is regular. No murmur. The abdomen is soft and nontender with a palpable spleen tip. No palpable hepatomegaly. Bowel sounds appear normal. No CVA tenderness. No tenderness on palpation or percussion of the mid to lower back. Results - Vital Signs Recent Vital Signs: Last Vital Signs Temp 98 F 09/08/17 08:01 Pulse 76 09/08/17 08:01 Resp 20 09/08/17 08:01 BP 133/87 09/08/17 08:01 Pulse Ox 96 09/08/17 08:01 - Labs Result Diagrams: 09/08/17 05:40 09/08/17 05:40 Labs: Laboratory Results - last 24 hr 09/08/17 09/08/17 09/08/17 05:40 05:40 05:40 WBC 2.7 L RBC 4.57 Hgb 13.2 D Hct 39.0 MCV 85.3 MCH 28.9 MCHC 33.9 RDW 13.3 Plt Count 105 L D PT 13.0 INR 1.2 Sodium 146 Potassium 3.5 L Chloride 107 Carbon Dioxide 23 Anion Gap 20 BUN 8 Creatinine 0.5 L Est GFR ( Amer) > 60 Est GFR (Non-Af Amer) > 60 Random Glucose 114 H Calcium 9.3 Carcinoembryonic Ag 55.2 H Assessment & Plan (1) Asthma Status: Chronic Priority: High (2) Pancreatic mass Status: Acute Priority: High (3) Portal vein thrombosis Status: Acute Priority: High - Assessment and Plan (Free Text) Plan: Agree with current medical management. Plan is for biopsy using EUS. Consult with gastroenterology has been placed. Continue as needed inhalation therapy for mild/intermittent asthma. Anticoagulation has been interrupted with possibility of biopsy. - Date & Time Date: 09/08/17 Time: 09:41
--- NOTE | 2017-09-08 10:19 | CP.PCM.CON ---
History of Present Illness - History of Present Illness History of Present Illness: PGY5 GI Fellow Consult Note Patient is a 62yo female with PMHx significant for non-hodgkins lymphoma with a large splenic lesion diagnosed in 2011 s/p R-CHOP therapy previously in remission who presented to the ED with complaint of back pain, constipation and nausea. For the last several months patient has been working out and attempting to lose weight, successfully losing approximately 20lbs. She developed back pain and believed it to be secondary to a muscle strain from working out. As time passed, pain remained and she developed constipation. Patient tried using apple cider vinegar without much relief and began to develop heartburn and occasional reflux for which she started using Famotidine. Her constipation became so severe that she started using OTC Senna but became reliant on this to pass any stool. She presented to her PCP who performed blood work which was unremarkable. As constipation persisted, she presented to the ED for evaluation. On CT, she was noted to have a 5.5x4.4cm pancreatic body mass with suspicion for portal vein involvement, portal vein thrombus, enlarged peripancreatic LNs and a rim-enhancing 2.7x1.7cm lesion in the superior right hepatic lobe. 12 system ROS performed and negative except where stated PMHx: See HPI; also asthma, ovarian teratoma PSHx: Port-a-cath placement, ovarian teratoma removal FHx: Maternal grandfather - pancreatic cancer; Father - bladder cancer; Maternal aunt - ovarian cancer Social: Denies tobacco, EtOH or illicit drug use Past Patient History - Infectious Disease Hx of Infectious Diseases: None - Past Medical History & Family History Past Medical History?: Yes - Past Social History Smoking Status: Smoker Currrent Status Unknown - CARDIAC Hx Cardiac Disorders: No - PULMONARY Hx Respiratory Disorders: Yes Hx Asthma: Yes - NEUROLOGICAL Hx Neurological Disorder: No - HEENT Hx HEENT Problems: No - RENAL Hx Chronic Kidney Disease: No - ENDOCRINE/METABOLIC Hx Endocrine Disorders: No Other/Comment: lymphoma - HEMATOLOGICAL/ONCOLOGICAL Hx Blood Disorders: Yes - INTEGUMENTARY Hx Dermatological Problems: No - MUSCULOSKELETAL/RHEUMATOLOGICAL Hx Musculoskeletal Disorders: No Hx Falls: No - GASTROINTESTINAL Hx Gastrointestinal Disorders: No - GENITOURINARY/GYNECOLOGICAL Hx Genitourinary Disorders: No - PSYCHIATRIC Hx Psychophysiologic Disorder: No Hx Emotional Abuse: No Hx Substance Use: No - SURGICAL HISTORY Hx Surgeries: Yes Hx Vascular Access Device: Yes (JANETH CATH INSERTED 05/2011) Other/Comment: OVARIAN CYSTECTOMY 1979 - ANESTHESIA Hx Anesthesia: Yes Hx Anesthesia Reactions: Yes (EXAC ASTHMA ) Hx Malignant Hyperthermia: No Meds Allergies/Adverse Reactions: Allergies Allergy/AdvReac Type Severity Reaction Status Date / Time FISH Allergy THROAT Verified 09/06/17 09:26 SWELLS vitamin b complex Allergy RASH Uncoded 09/06/17 09:26 - Medications Medications: Current Medications Acetaminophen (Tylenol 325mg Tab) 650 mg PO Q4 PRN PRN Reason: Other Last Admin: 09/06/17 21:15 Dose: 650 mg Albuterol (Ventolin Hfa 90 Mcg/Actuation (8 G)) 1 puff INH Q6 PRN PRN Reason: Shortness of Breath Docusate Sodium (Colace) 100 mg PO BID [facility] Last Admin: 09/08/17 08:20 Dose: Not Given Enoxaparin Sodium (Lovenox) 70 mg SC Q12H [facility] PRN Reason: Protocol Last Admin: 09/07/17 08:02 Dose: 70 mg Famotidine (Pepcid) 20 mg PO DAILY [facility] Last Admin: 09/08/17 08:14 Dose: 20 mg Lactulose (Enulose) 20 gm PO BID PRN PRN Reason: Constipation Last Admin: 09/07/17 08:03 Dose: 20 gm Magnesium Hydroxide (Milk Of Magnesia) 30 ml PO DAILY PRN PRN Reason: Constipation Ondansetron HCl (Zofran Inj) 4 mg IVP Q6 PRN PRN Reason: Nausea/Vomiting Pantoprazole Sodium (Protonix Ec Tab) 40 mg PO DAILY [facility] Last Admin: 09/08/17 08:21 Dose: Not Given Temazepam (Restoril) 15 mg PO HS PRN PRN Reason: Insomnia Last Admin: 09/07/17 22:24 Dose: 15 mg Theophylline (Elixophyllin Liq) 50 mg PO BID [facility] Last Admin: 09/08/17 08:21 Dose: Not Given Physical Exam - Constitutional Appears: Non-toxic, No Acute Distress - Eye Exam Eye Exam: EOMI, PERRL - ENT Exam ENT Exam: Mucous Membranes Moist - Respiratory Exam Respiratory Exam: Clear to Auscultation Bilateral. absent: Rales, Rhonchi, Wheezes - Cardiovascular Exam Cardiovascular Exam: RRR, +S1, +S2 - GI/Abdominal Exam GI & Abdominal Exam: Normal Bowel Sounds, Soft. absent: Distended, Firm, Guarding, Organomegaly, Rigid, Tenderness - Extremities Exam Extremities exam: Positive for: normal inspection. Negative for: pedal edema - Neurological Exam Neurological exam: Alert, Oriented x3 - Psychiatric Exam Psychiatric exam: Normal Affect, Normal Mood - Skin Skin Exam: Dry, Warm Results - Vital Signs Recent Vital Signs: Last Vital Signs Temp 98 F 09/08/17 08:01 Pulse 76 09/08/17 08:01 Resp 20 09/08/17 08:01 BP 133/87 09/08/17 08:01 Pulse Ox 96 09/08/17 08:01 - Labs Result Diagrams: 09/08/17 05:40 09/08/17 05:40 Labs: Laboratory Results - last 24 hr 09/08/17 09/08/17 09/08/17 05:40 05:40 05:40 WBC 2.7 L RBC 4.57 Hgb 13.2 D Hct 39.0 MCV 85.3 MCH 28.9 MCHC 33.9 RDW 13.3 Plt Count 105 L D PT 13.0 INR 1.2 Sodium 146 Potassium 3.5 L Chloride 107 Carbon Dioxide 23 Anion Gap 20 BUN 8 Creatinine 0.5 L Est GFR ( Amer) > 60 Est GFR (Non-Af Amer) > 60 Random Glucose 114 H Calcium 9.3 Carcinoembryonic Ag 55.2 H Assessment & Plan - Assessment and Plan (Free Text) Assessment: Patient is a 62yo female with PMHx significant for non-hodgkins lymphoma with a large splenic lesion diagnosed in 2011 s/p R-CHOP therapy previously in remission who presented to the ED with complaint of back pain, constipation and nausea -Pancreatic mass concerning for malignancy, ? liver metastasis -Constipation -H/O Non-hodgkin's lymphoma s/p R-CHOP Plan: -Constipation improved with Lactulose therapy -Recommend discontinuation of Lactulose and use of Miralax 17g PO QD, titrate to 1BM/day -OK to continue Lovenox for now -Diet as tolerated -CEA elevation noted -CA 19-9 pending -Oncology service following -Recommend EGD/EUS with FNB of pancreatic lesion, ultrasound staging/evaluation of LNs and vascular involvement -Per primary team, patient to be D/C home -We will coordinate care for outpatient procedure - Date & Time Date: 09/08/17 Time: 09:30
--- NOTE | 2017-09-08 11:21 | CP.PCM.DIS ---
Provider - Provider Date of Admission: 09/06/17 13:40 Attending physician: Emmanuel Moyer DO Primary care physician: Dr. Negrete Consults: Hem/onc consult pulmonary consult Time Spent in preparation of Discharge (in minutes): 20 Hospital Course - Lab Results Lab Results: Most Recent Lab Values WBC 2.7 K/uL (4.8-10.8) L 09/08/17 05:40 RBC 4.57 Mil/uL (3.80-5.20) 09/08/17 05:40 Hgb 13.2 g/dL (12.0-16.0) D 09/08/17 05:40 Hct 39.0 % (34.0-47.0) 09/08/17 05:40 MCV 85.3 fl (81.0-99.0) 09/08/17 05:40 MCH 28.9 pg (27.0-31.0) 09/08/17 05:40 MCHC 33.9 g/dL (33.0-37.0) 09/08/17 05:40 RDW 13.3 % (11.5-14.5) 09/08/17 05:40 Plt Count 105 K/uL (130-400) L D 09/08/17 05:40 MPV 8.9 fl (7.2-11.7) 09/06/17 10:17 Neut % (Auto) 55.7 % (50.0-75.0) 09/06/17 10:17 Lymph % (Auto) 33.2 % (20.0-40.0) 09/06/17 10:17 Wharton % (Auto) 8.1 % (0.0-10.0) 09/06/17 10:17 Eos % (Auto) 2.3 % (0.0-4.0) 09/06/17 10:17 Baso % (Auto) 0.7 % (0.0-2.0) 09/06/17 10:17 Neut # (Auto) 2.3 K/uL (1.8-7.0) 09/06/17 10:17 Lymph # (Auto) 1.3 K/uL (1.0-4.3) 09/06/17 10:17 Wharton # (Auto) 0.3 K/uL (0.0-0.8) 09/06/17 10:17 Eos # (Auto) 0.1 K/uL (0.0-0.7) 09/06/17 10:17 Baso # (Auto) 0.0 K/uL (0.0-0.2) 09/06/17 10:17 PT 13.0 Seconds (9.8-13.1) 09/08/17 05:40 INR 1.2 (0.9-1.2) 09/08/17 05:40 APTT 32.6 Seconds (25.6-37.1) 09/06/17 14:45 Sodium 146 mmol/l (132-148) 09/08/17 05:40 Potassium 3.5 MMOL/L (3.6-5.0) L 09/08/17 05:40 Chloride 107 mmol/L (98-107) 09/08/17 05:40 Carbon Dioxide 23 mmol/L (22-30) 09/08/17 05:40 Anion Gap 20 (10-20) 09/08/17 05:40 BUN 8 mg/dl (7-17) 09/08/17 05:40 Creatinine 0.5 mg/dl (0.7-1.2) L 09/08/17 05:40 Est GFR ( Amer) > 60 09/08/17 05:40 Est GFR (Non-Af Amer) > 60 09/08/17 05:40 Random Glucose 114 mg/dL (65-105) H 09/08/17 05:40 Calcium 9.3 mg/dL (8.4-10.2) 09/08/17 05:40 Total Bilirubin 0.8 mg/dl (0.2-1.3) 09/06/17 10:17 AST 21 U/L (14-36) 09/06/17 10:17 ALT 42 U/L (9-52) 09/06/17 10:17 Alkaline Phosphatase 86 U/L (38-126) 09/06/17 10:17 Troponin I < 0.0120 ng/mL (0.00-0.120) 09/06/17 14:45 Total Protein 7.6 G/DL (6.3-8.2) 09/06/17 10:17 Albumin 4.6 g/dL (3.5-5.0) 09/06/17 10:17 Globulin 3.0 gm/dL (2.2-3.9) 09/06/17 10:17 Albumin/Globulin Ratio 1.5 (1.0-2.1) 09/06/17 10:17 Lipase 93 U/L (23-300) 09/06/17 14:45 Carcinoembryonic Ag 55.2 ng/mL (0-3.0) H 09/08/17 05:40 Theophylline < 1.0 ug/ml (10-20) L 09/08/17 10:02 - Hospital Course Hospital Course: 62 yo female with a past medical history significant for asthma, mantle cell lymphoma treated with chemotherapy and currently on remission since 2014, presented to ER with severe abdominal pain , progressive over the last 1 month and constipation .CT abdomen and pelvis showed portal vein thrombosis and 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 Patient admitted to med/surg for pain control, anticoagulation and further work up for the mass. IR consulted for biopsy of one of the masses for tissue diagnosis but they recommended tissue biopsy with EUS by GI as best option for the patient . GI consulted and case discussed. Patient scheduled for EUS biopsy on September 10 1.30 pm at [facility] by .Information about appointment provided to patient . She will need to continue with lovenox therapeutic dose 100 mg SQ daily for portal vein thrombosis as outpatient . Advised patient to not take lovenox the morning of the procedure and be NPo past midnight . Hem/onc Dr. Chirstianson and PMD Dr Elizabeth Negrete are aware . Patient to follow up as outpatient after biopsy with or her other oncologist at [facility]. Pateint will be discharged home today. She is hemodynamically stable. 1.Suspected metastatic disease of unclear etiology ( possible lymphoma , pancreatic ca ) CT abdomen and pelvis showed : Large pancreatic mass, 5.5 x 4.4, in the body of the pancreas with invasion and portal vein thrombosis, with 2.7 cm rim enhancing lesion in the posterior superior right hepatic lobe concerning for metastatic deposit given large pancreatic mass. plan for EUS biopsy September 10 1.30 PM at [facility] by Dr. García . Appointment given to patient Hold Lovenox the morning of procedure NPO past midnight the night before procedure 2.Portal vein thrombosis Possible Secondary to pancreatic mass Started therapeutic Lovenox 1 mg/kg Hem/onc consulted d/c on lovenox 100 mg SQ daily 3.Asthma Chronic, stable Dr. Negrete on consultation for pulmonary Ventolin inhaler PRN 4. Constipation Given Lactulose and MOM Continue colase resolved 5. History of lymphoma 6.DVT prophylaxis on Lovenox Discharge Exam - Head Exam Head Exam: ATRAUMATIC, NORMAL INSPECTION, NORMOCEPHALIC - Eye Exam Eye Exam: EOMI, Normal appearance, PERRL Pupil Exam: NORMAL ACCOMODATION - ENT Exam ENT Exam: Mucous Membranes Moist, Normal Exam - Neck Exam Neck exam: Full Rom, Normal Inspection - Respiratory Exam Respiratory Exam: NORMAL BREATHING PATTERN. absent: Clear to PA & Lateral, Rales, Rhonchi, Wheezes - Cardiovascular Exam Cardiovascular Exam: REGULAR RHYTHM, RRR, +S1, +S2. absent: JVD - GI/Abdominal Exam GI & Abdominal Exam: Normal Bowel Sounds, Soft. absent: Distended, Guarding, Rebound, Tenderness - Rectal Exam Rectal Exam: Deferred - Extremities Exam Extremities exam: normal capillary refill, normal inspection, pedal pulses present - Back Exam Back exam: NORMAL INSPECTION - Neurological Exam Neurological exam: Alert, CN II-XII Intact, Oriented x3, Reflexes Normal - Psychiatric Exam Psychiatric exam: Normal Affect, Normal Mood - Skin Skin Exam: Dry, Intact, Normal Color, Warm Discharge Plan - Discharge Medications Prescriptions: Enoxaparin [Lovenox] 100 mg SC DAILY #30 syr Lactulose [Constulose] 10 gm PO DAILY #120 ml - Follow Up Plan Condition: STABLE Disposition: HOME/ ROUTINE Patient education suggested?: Yes Instructions: How to Give a Subcutaneous Injection, Acute Abdomen (Belly Pain) , Adult (DC) Additional Instructions: follow up with your oncologist dr lima on fridayseptember 10 at 1:30pm in [facility] Referrals: Satnam Christianson MD [Staff Provider] - Gigi Negrete MD [Family Provider] - Fercho García MD [Medical Doctor] - George Lima DO [Resident] -
--- NOTE | 2017-09-08 11:58 | CP.PCM.PN ---
Subjective - Date & Time of Evaluation Date of Evaluation: 09/08/17 Time of Evaluation: 11:52 - Subjective Subjective: Pt had 2 large bowel movements with the lactulose and is feeling better today. A IR biopsy was requested, but I felt and on discussion with IR that a EUS biopsy would give us a better result. Her CEA ia 55, It is not sure when the EUS can be done ,so the pt is being discharged with sc lovenox, She is also trying to see if she can be seen at [facility]. Objective - Vital Signs/Intake and Output Vital Signs (last 24 hours): Temp Pulse Resp BP Pulse Ox 98 F 76 20 133/87 96 09/08/17 08:01 09/08/17 08:01 09/08/17 08:01 09/08/17 08:01 09/08/17 08:01 - Medications Medications: Current Medications Acetaminophen (Tylenol 325mg Tab) 650 mg PO Q4 PRN PRN Reason: Other Last Admin: 09/06/17 21:15 Dose: 650 mg Albuterol (Ventolin Hfa 90 Mcg/Actuation (8 G)) 1 puff INH Q6 PRN PRN Reason: Shortness of Breath Docusate Sodium (Colace) 100 mg PO BID [facility] Last Admin: 09/08/17 08:20 Dose: Not Given Enoxaparin Sodium (Lovenox) 70 mg SC Q12H [facility] PRN Reason: Protocol Last Admin: 09/07/17 08:02 Dose: 70 mg Famotidine (Pepcid) 20 mg PO DAILY [facility] Last Admin: 09/08/17 08:14 Dose: 20 mg Lactulose (Enulose) 20 gm PO BID PRN PRN Reason: Constipation Last Admin: 09/07/17 08:03 Dose: 20 gm Magnesium Hydroxide (Milk Of Magnesia) 30 ml PO DAILY PRN PRN Reason: Constipation Ondansetron HCl (Zofran Inj) 4 mg IVP Q6 PRN PRN Reason: Nausea/Vomiting Pantoprazole Sodium (Protonix Ec Tab) 40 mg PO DAILY [facility] Last Admin: 09/08/17 08:21 Dose: Not Given Temazepam (Restoril) 15 mg PO HS PRN PRN Reason: Insomnia Last Admin: 09/07/17 22:24 Dose: 15 mg Theophylline (Elixophyllin Liq) 50 mg PO BID [facility] Last Admin: 09/08/17 08:21 Dose: Not Given - Labs Labs: 09/08/17 05:40 09/08/17 05:40 PT 13.0 Seconds (9.8-13.1) 09/08/17 05:40 INR 1.2 (0.9-1.2) 09/08/17 05:40 APTT 32.6 Seconds (25.6-37.1) 09/06/17 14:45
== END 2017-09-08 13:25 | disposition home or self-care (01) | DRG 438 ==
LOC: H.ER 09:08 → H.ERHOLD 13:40 → H.MEDSURG1 15:24
PROVIDERS: ADMIT Internal Medicine; ATTEND Internal Medicine
PROC: 3E0234Z Introduction of Serum, Toxoid and Vaccine into Muscle, Percutaneous Approach (ICD-10-PCS; principal; 2017-09-06)
DX: K86.89 Other specified diseases of pancreas (principal); I81 Portal vein thrombosis; C78.7 Secondary malignant neoplasm of liver and intrahepatic bile duct; K59.00 Constipation, unspecified; Z85.72 Personal history of non-Hodgkin lymphomas; J45.909 Unspecified asthma, uncomplicated; Z23 Encounter for immunization; Z92.21 Personal history of antineoplastic chemotherapy; Z87.891 Personal history of nicotine dependence; Z87.01 Personal history of pneumonia (recurrent); Z91.013 Allergy to seafood